=== PATIENT | female | born 1995 | race African-American/Black ===

== ENCOUNTER 2018-05-17 06:57 | Inpatient (IN) | payer OTHER, MEDICAID ==
[~2018-05-17] VITALS: Ht 167.6 cm; Wt 122.9 kg
[2018-05-17] MEDS ORDERED: LACTATED RINGERS 1,000 ML IV SCH (07:57)
[2018-05-17] MEDS ORDERED: DEXT 5%/LR + PITOCIN 20UNITS/L 1,000 ML IV SCH (07:57)
[2018-05-17] MEDS ORDERED: NALOXONE HCL 0.4 MG/ML 1ML VIAL IM PRN (08:00)
[2018-05-17] MEDS ORDERED: METHYLERGONOVINE MALEATE 0.2 MG/ML IM PRN (08:00)
[2018-05-17] MEDS ORDERED: CARBOPROST TROMETHAMINE 250 MCG/ML AMPUL IM PRN (08:00)
[2018-05-17] MEDS ORDERED: BUTORPHANOL TARTRATE 2 MG/ML VIAL IV PRN ×2 (08:00→14:30)
[2018-05-17] MEDS ORDERED: MISOPROSTOL 100MCG TABLET VG SCH (08:00)
[2018-05-17] MEDS: LACTATED RINGERS 1,000 ML IV SCH ×2 (09:10→10:47)
[2018-05-17 09:12] LABS: CLARITY URINE CLOUDY (CLEAR); COLOR URINE YELLOW (YELLOW); KETONES URINE 1+ (NEGATIVE); LEUKOCYTE ESTERASE URINE NEGATIVE (NEGATIVE); NITRITE URINE NEGATIVE (NEGATIVE); OCCULT BLOOD URINE NEGATIVE (NEGATIVE); PROTEIN URINE NEGATIVE (NEGATIVE); SPECIFIC GRAVITY URINE 1.027 (1.005-1.030); UROBILINOGEN URINE 0.2 E.U./dL (0.2-1.0)
[2018-05-17 09:14] LABS: BASOPHILS % 0.6 % (0.0-2.0); EOSINOPHILS % 0.3 % (0.0-5.0); HEMATOCRIT. 33.5 % (36.0-48.0); HEMOGLOBIN. 10.8 g/dL (12.0-16.0); LYMPHOCYTES % 23.3 % (20.0-50.0); MEAN CORPUSCULAR HEMOGLOBIN 27.1 pg (28.0-32.0); MEAN CORPUSCULAR VOLUME 83.7 fL (81.0-99.0); MEAN PLATELET VOLUME 8.7 fl (7.4-10.4); MONOCYTES % 4.8 % (2.0-8.0); PLATELET 316 x1000/uL (130-400); RED CELL DISTRIBUTION WIDTH 16.9 % (11.6-14.6)
[2018-05-17 09:18] LABS: PARTIAL THROMBOPLASTIN TIME 31.6 sec (23.4-31.0); PROTHROMBIN TIME 9.6 sec (9.1-11.1)
[2018-05-17 09:23] LABS: *BARBITURATES SCREEN URINE NEGATIVE (NEGATIVE); *COCAINE SCREEN URINE NEGATIVE (NEGATIVE); METHADONE URINE SCREEN NEGATIVE (NEGATIVE); OPIATES URINE SCREEN NEGATIVE (NEGATIVE); PHENCYCLIDINE URINE SCREEN NEGATIVE (NEGATIVE)
[2018-05-17 09:25] LABS: *AMPHETAMINES SCREEN URINE NEGATIVE (NEGATIVE)
[2018-05-17 09:26] LABS: *BENZODIAZEPINES SCREEN URINE NEGATIVE (NEGATIVE)
[2018-05-17 09:30] LABS: CANNABINOID URINE SCREEN PRESUMTIVE POSITIVE (NEGATIVE)
[2018-05-17] MEDS ORDERED: CITRIC ACID/SODIUM CITRATE SOLN 30ML UDC PO NR (09:45)
[2018-05-17] MEDS ORDERED: MORPHINE SULFATE/PF 1MG/ML 10ML AMP ONE (10:09)
[2018-05-17] MEDS ORDERED: BUPIVACAINE HCL/DEXTROSE/PF 0.75% 2ML AMP INJ ONE (10:09)
[2018-05-17] MEDS ORDERED: FENTANYL CITRATE/PF 50MCG/ML 2ML VIAL ONE (10:09)
[2018-05-17] MEDS ORDERED: CEFAZOLIN SODIUM 1000MG/VIAL ONE ×2 (10:11→10:15)
[2018-05-17] MEDS ORDERED: OXYTOCIN 10 UNITS/ML 1ML ONE (10:11)
[2018-05-17] MEDS ORDERED: PHENYLEPHRINE HCL 10 MG/ML 1ML (IV VIAL) IV ONE ×2 (10:11→10:15)
[2018-05-17] MEDS ORDERED: EPHEDRINE SULFATE 50MG/ML VIAL ONE (10:11)
[2018-05-17] MEDS ORDERED: GLYCOPYRROLATE 0.2 MG/ML 2ML VIAL ONE (10:11)
[2018-05-17] MEDS ORDERED: ONDANSETRON HCL 4MG/2ML INJ ONE (10:11)
[2018-05-17] MEDS ORDERED: SODIUM CHLORIDE 0.9% 10ML VIAL ONE ×2 (10:11→10:16)
[2018-05-17] MEDS ORDERED: LANOLIN OINT 0.25 GM TUBE TOP PRN (12:30)
[2018-05-17 12:31] LABS: HEPATITIS B SURFACE ANTIGEN NEGATIVE
[2018-05-17] MEDS ORDERED: OXYTOCIN 20 UNITS in LACTATED RINGERS 1,000 ML IV SCH (13:30)
[2018-05-17] MEDS ORDERED: KETOROLAC 30MG/ML VIAL IV PRN (14:30)
[2018-05-17] MEDS ORDERED: DIPHENHYDRAMINE 50MG/ML VIAL IV PRN ×2 (14:30→20:45)
[2018-05-17] MEDS ORDERED: NALOXONE HCL 0.4 MG/ML 1ML VIAL IV PRN (14:30)
[2018-05-17 15:50] VITALS: BP 119/59
[2018-05-17 16:20] VITALS: BP 108/61
[2018-05-17 16:50] VITALS: BP 123/78
[2018-05-17 19:45] VITALS: BP 129/69
[2018-05-17] MEDS: KETOROLAC 30MG/ML VIAL IV PRN (23:34)
[2018-05-17 23:45] VITALS: BP 117/64
[2018-05-18 05:17] VITALS: BP 116/72
[2018-05-18] MEDS: KETOROLAC 30MG/ML VIAL IV PRN (05:27)
[2018-05-18 07:32] VITALS: BP 110/65
[2018-05-18] MEDS ORDERED: CITRIC ACID/SODIUM CITRATE SOLN 30ML UDC PO ONE (11:00)
[2018-05-18 16:11] VITALS: BP 121/73
[2018-05-18 18:27] LABS: BASOPHILS % 0.2 % (0.0-2.0); EOSINOPHILS % 0.2 % (0.0-5.0); HEMATOCRIT. 33.8 % (36.0-48.0); HEMOGLOBIN. 11.1 g/dL (12.0-16.0); LYMPHOCYTES % 19.8 % (20.0-50.0); MEAN CORPUSCULAR HEMOGLOBIN 27.6 pg (28.0-32.0); MEAN CORPUSCULAR VOLUME 84.4 fL (81.0-99.0); MEAN PLATELET VOLUME 8.9 fl (7.4-10.4); MONOCYTES % 6.5 % (2.0-8.0); NEUTROPHILS % 73.3 % (40.0-76.0); PLATELET 346 x1000/uL (130-400); RED BLOOD CELL COUNT 4.01 mill/uL (4.2-5.4); RED CELL DISTRIBUTION WIDTH 16.7 % (11.6-14.6)
[2018-05-18 20:00] VITALS: BP 122/68
[2018-05-19] MEDS: ACETAMINOPHEN 500MG TABLET PO PRN ×2 (01:24→14:02)
[2018-05-19 04:00] VITALS: BP 123/63
[2018-05-19 09:00] VITALS: BP 131/65
[2018-05-19 17:00] VITALS: BP 130/74
[2018-05-19 21:10] VITALS: BP 136/86
[2018-05-20] MEDS: ACETAMINOPHEN 500MG TABLET PO PRN (00:16)
[2018-05-20 05:05] VITALS: BP 110/74
[2018-05-20 08:34] VITALS: BP 133/53
[2018-05-22 04:11] LABS: CANNABINOID CONFIRMATION URINE Positive (.)
== END 2018-05-20 13:30 | disposition home or self-care (01) | DRG 788 ==
LOC: OBSVTOIN 06:57 → 8EST NSY 06:57 → INTOOBSV 06:57 → 8 EST LDRP 07:44 → 8EST 17:17
PROVIDERS: ADMIT Obstetrics & Gynecology Obstetrics; ATTEND Obstetrics & Gynecology Obstetrics
PROC: 10D00Z1 Extraction of Products of Conception, Low, Open Approach (ICD-10-PCS; principal; 2018-05-17)
DX: O77.0 Labor and delivery complicated by meconium in amniotic fluid (principal); O34.211 Maternal care for low transverse scar from previous cesarean delivery; O90.0 Disruption of cesarean delivery wound; N85.8 Other specified noninflammatory disorders of uterus; Z37.0 Single live birth; Z3A.39 39 weeks gestation of pregnancy
CPT/HCPCS: 36415; 80305; 80349; 86592; 86703; 86762; 86850; 86900; 86920; 87340; 88307; 99281; J0595; J0690; J1885; J2274; J2370; J2405; J3010; J3490; J7120

== ENCOUNTER 2019-03-03 17:11 | Emergency (ER) | payer OTHER, MEDICAID ==
[~2019-03-03] VITALS: Ht 180.3 cm; Wt 91.0 kg
[2019-03-03 17:13] VITALS: BP 135/78
== END 2019-03-03 19:49 | disposition left against medical advice (07) ==
LOC: ER 17:41
DX: F98.9 Unspecified behavioral and emotional disorders with onset usually occurring in childhood and adolescence (principal); Z53.21 Procedure and treatment not carried out due to patient leaving prior to being seen by health care provider